=== PATIENT | female | born 1970 | race Hispanic/Latino ===

== ENCOUNTER 2022-11-24 06:13 | Emergency (ER) | payer OTHER ==
[~2022-11-24] VITALS: Ht 157.5 cm; Wt 77.1 kg
[2022-11-24] MEDS ORDERED: MECLIZINE HCL 12.5 MG TAB PO ONE (07:00)
[2022-11-24] MEDS ORDERED: MECLIZINE HCL12.5 MG PO (07:56)
[2022-11-24 08:29] VITALS: O2SAT 100
== END 2022-11-24 08:31 | disposition home or self-care (01) ==
LOC: ER 06:22
DX: S00.83XA Contusion of other part of head, initial encounter (principal); R51.9 Headache, unspecified; R11.2 Nausea with vomiting, unspecified; W20.8XXA Other cause of strike by thrown, projected or falling object, initial encounter; Y92.89 Other specified places as the place of occurrence of the external cause
CPT/HCPCS: 70450; 99283; J8597